=== PATIENT | female | born 1940 | race Caucasian/White ===

== ENCOUNTER 2022-02-10 12:19 | Emergency (ER) | payer MEDICARE, BC ==
[2022-02-10] MEDS ORDERED: Sodium Chloride 0.9% 10 ML Syringe FLUSH PRN (13:23)
[2022-02-10] MEDS ORDERED: HYDROmorphone 0.5 MG/0.5 ML Syringe IVPUSH ONE (13:23)
[2022-02-10] MEDS ORDERED: Ondansetron 4 MG/2 ML SDV IVPUSH ONE (15:19)
[2022-02-10] MEDS ORDERED: Promethazine 12.5 MG in Sodium Chloride 0.9% 50 ML IV ONE (15:44)
== END 2022-02-10 19:20 | disposition home or self-care (01) ==
LOC: JP.ED 12:19
DX: K80.20 Calculus of gallbladder without cholecystitis without obstruction (principal); K74.60 Unspecified cirrhosis of liver; K75.81 Nonalcoholic steatohepatitis (NASH); J90 Pleural effusion, not elsewhere classified; M54.6 Pain in thoracic spine; M54.50 Low back pain, unspecified; R11.2 Nausea with vomiting, unspecified; Z88.0 Allergy status to penicillin; Z88.1 Allergy status to other antibiotic agents; Z88.2 Allergy status to sulfonamides; Z79.01 Long term (current) use of anticoagulants
CPT/HCPCS: 36415; 71045; 71045-26; 72080; 72080-26; 74176; 80048; 80076; 85025; 85651; 96374; 96375; 99283; 99284-25; J1170; J2405; J2550; J3490

== ENCOUNTER 2022-09-26 05:11 | Inpatient (IN) | payer MEDICARE, BC ==
[2022-09-26 06:21] LABS: ESTIMATED GFR 16 mL/min (>60)
[2022-09-26 06:26] LABS: CORONAVIRUS COVID-19 NAA NEGATIVE (NEGATIVE)
[2022-09-26] MEDS ORDERED: Magnesium Hydroxide 400 MG/5 ML Susp 30 ML Cup PO PRN (09:43)
[2022-09-26] MEDS ORDERED: Acetaminophen 325 MG Tab PO PRN (09:43)
[2022-09-26] MEDS ORDERED: LORazepam 2 MG/ML SDV IVPUSH PRN (09:43)
[2022-09-26] MEDS ORDERED: Ondansetron 4 MG/2 ML SDV IV PRN (09:43)
[2022-09-26] MEDS ORDERED: Ondansetron 4 MG Tab.DIS PO PRN (09:43)
[2022-09-26] MEDS: Spironolactone 25 MG Tab PO SCH (10:31)
[2022-09-26] MEDS: Folic Acid 1 MG Tab PO SCH (10:31)
[2022-09-26] MEDS: Calcium Carbonate/Vitamin D3 1500 MG-400 Units Tab PO SCH ×2 (10:31→10:43)
[2022-09-26] MEDS: Metoprolol Tartrate 50 MG Tab PO SCH ×2 (10:31→20:10)
[2022-09-26] MEDS: amLODIPine 5 MG Tab PO SCH (10:31)
[2022-09-26] MEDS: Acetaminophen/HYDROcodone 325-5 MG Tab PO PRN ×2 (10:41→15:48)
[2022-09-26] MEDS: Albuterol 0.083% 2.5 MG/3 ML Neb Soln NEB PRN ×2 (10:42→15:48)
[2022-09-26] MEDS: Melatonin 3 MG Tab PO SCH (20:09)
[2022-09-26] MEDS: Lactobacillus Rhamnosus GG (Probiotic) Cap PO SCH (20:10)
[2022-09-26] MEDS ORDERED: atorvaSTATin 20 MG Tab PO SCH (21:00)
[2022-09-27 05:30] LABS: ESTIMATED GFR 16 mL/min (>60)
[2022-09-27] MEDS ORDERED: Levothyroxine 25 MCG Tab PO SCH (07:30)
[2022-09-27] MEDS: Folic Acid 1 MG Tab PO SCH (08:14)
[2022-09-27] MEDS: Levothyroxine 25 MCG Tab PO SCH (08:14)
[2022-09-27] MEDS: Lactobacillus Rhamnosus GG (Probiotic) Cap PO SCH ×2 (08:14→20:55)
[2022-09-27] MEDS: Calcium Carbonate/Vitamin D3 1500 MG-400 Units Tab PO SCH (08:14)
[2022-09-27] MEDS: Metoprolol Tartrate 50 MG Tab PO SCH ×2 (08:15→21:04)
[2022-09-27] MEDS: amLODIPine 5 MG Tab PO SCH (08:15)
[2022-09-27] MEDS: Spironolactone 25 MG Tab PO SCH (08:18)
[2022-09-27] MEDS: Acetaminophen/HYDROcodone 325-5 MG Tab PO PRN ×2 (15:00→19:42)
[2022-09-27] MEDS: Melatonin 3 MG Tab PO SCH (20:51)
[2022-09-28] MEDS: Acetaminophen/HYDROcodone 325-5 MG Tab PO PRN (03:34)
[2022-09-28 05:24] LABS: ESTIMATED GFR 17 mL/min (>60)
[2022-09-28] MEDS: Levothyroxine 25 MCG Tab PO SCH (07:10)
[2022-09-28] MEDS ORDERED: Bumetanide 1 MG/4 ML MDV IVPUSH ONE (07:35)
[2022-09-28] MEDS: Calcium Carbonate/Vitamin D3 1500 MG-400 Units Tab PO SCH (08:21)
[2022-09-28] MEDS: Folic Acid 1 MG Tab PO SCH (08:21)
[2022-09-28] MEDS: Lactobacillus Rhamnosus GG (Probiotic) Cap PO SCH (08:21)
[2022-09-28] MEDS: Metoprolol Tartrate 50 MG Tab PO SCH (08:21)
[2022-09-28] MEDS: amLODIPine 5 MG Tab PO SCH (08:31)
== END 2022-09-28 14:50 | disposition home or self-care (01) | DRG 291 ==
LOC: JP.ED 05:11 → JP.MS 07:54
PROVIDERS: ADMIT Hospitalist; ATTEND Hospitalist
PROC: 0W993ZZ Drainage of Right Pleural Cavity, Percutaneous Approach (ICD-10-PCS; principal; 2022-09-27)
DX: I11.0 Hypertensive heart disease with heart failure (principal); I50.43 Acute on chronic combined systolic (congestive) and diastolic (congestive) heart failure; J96.01 Acute respiratory failure with hypoxia; E87.1 Hypo-osmolality and hyponatremia; J91.8 Pleural effusion in other conditions classified elsewhere; I69.30 Unspecified sequelae of cerebral infarction; I48.91 Unspecified atrial fibrillation; K74.60 Unspecified cirrhosis of liver; K75.81 Nonalcoholic steatohepatitis (NASH); Z20.822 Contact with and (suspected) exposure to COVID-19; Z88.8 Allergy status to other drugs, medicaments and biological substances; Z79.890 Hormone replacement therapy; Z79.899 Other long term (current) drug therapy; E78.5 Hyperlipidemia, unspecified; E03.9 Hypothyroidism, unspecified; I69.320 Aphasia following cerebral infarction; Z88.0 Allergy status to penicillin; Z88.2 Allergy status to sulfonamides; Z79.01 Long term (current) use of anticoagulants
CPT/HCPCS: 0241U; 36415; 71045; 71046; 80053; 82042; 82945; 83615; 83880; 83986; 84157; 84443; 85025; 85027; 85610; 87015; 87070; 87102; 87116; 87205; 87206; 87220; 89050; 93005; 94640; 97116; 97162; 97165; 99285; A9270-GY; J3490

== ENCOUNTER 2022-10-01 15:03 | Inpatient (IN) | payer MEDICARE, BC ==
[2022-10-01 17:05] LABS: ESTIMATED GFR 15 mL/min (>60)
[2022-10-01] MEDS ORDERED: Albuterol 0.083% 2.5 MG/3 ML Neb Soln NEB PRN (17:36)
[2022-10-01] MEDS ORDERED: Magnesium Hydroxide 400 MG/5 ML Susp 30 ML Cup PO PRN (17:36)
[2022-10-01] MEDS ORDERED: Melatonin 3 MG Tab PO PRN (17:36)
[2022-10-01] MEDS ORDERED: Ondansetron 4 MG/2 ML SDV IV PRN (17:36)
[2022-10-01] MEDS: Metoprolol Tartrate 50 MG Tab PO SCH (21:28)
[2022-10-01] MEDS: Apixaban 2.5 MG Tab PO SCH (21:29)
[2022-10-01] MEDS: atorvaSTATin 20 MG Tab PO SCH (21:29)
[2022-10-02] MEDS: Levothyroxine 25 MCG Tab PO SCH (08:30)
[2022-10-02] MEDS: Apixaban 2.5 MG Tab PO SCH ×2 (08:30→21:16)
[2022-10-02] MEDS: Folic Acid 1 MG Tab PO SCH (08:31)
[2022-10-02] MEDS: Spironolactone 25 MG Tab PO SCH (08:31)
[2022-10-02] MEDS: amLODIPine 5 MG Tab PO SCH (08:37)
[2022-10-02] MEDS: Metoprolol Tartrate 50 MG Tab PO SCH ×2 (08:37→21:13)
[2022-10-02] MEDS: atorvaSTATin 20 MG Tab PO SCH (21:16)
[2022-10-03] MEDS: Acetaminophen 325 MG Tab PO PRN ×3 (00:10→21:16)
[2022-10-03] MEDS: Levothyroxine 25 MCG Tab PO SCH (07:38)
[2022-10-03] MEDS: Folic Acid 1 MG Tab PO SCH (08:59)
[2022-10-03] MEDS: Spironolactone 25 MG Tab PO SCH (08:59)
[2022-10-03] MEDS: Apixaban 2.5 MG Tab PO SCH ×2 (08:59→20:59)
[2022-10-03] MEDS: amLODIPine 5 MG Tab PO SCH (08:59)
[2022-10-03] MEDS: Metoprolol Tartrate 25 MG Tab PO SCH ×2 (09:02→21:00)
[2022-10-03] MEDS: atorvaSTATin 20 MG Tab PO SCH (20:59)
[2022-10-03] MEDS: Morphine 10 MG/0.5 ML Oral Syringe PO PRN (22:42)
[2022-10-04] MEDS: Levothyroxine 25 MCG Tab PO SCH (08:06)
[2022-10-04] MEDS: Morphine 10 MG/0.5 ML Oral Syringe PO PRN (08:06)
[2022-10-04] MEDS: Folic Acid 1 MG Tab PO SCH (08:06)
[2022-10-04] MEDS: Apixaban 2.5 MG Tab PO SCH ×2 (08:06→21:52)
[2022-10-04] MEDS: Spironolactone 25 MG Tab PO SCH (08:06)
[2022-10-04] MEDS: Metoprolol Tartrate 25 MG Tab PO SCH ×2 (08:06→21:53)
[2022-10-04] MEDS: amLODIPine 5 MG Tab PO SCH (08:13)
[2022-10-04] MEDS: LORazepam ORAL Concentrate 1MG/0.5ML U/D PO PRN (11:28)
[2022-10-04] MEDS: Prochlorperazine 10 MG Tab PO PRN (14:04)
[2022-10-04] MEDS: atorvaSTATin 20 MG Tab PO SCH (21:53)
[2022-10-05] MEDS: Morphine 10 MG/0.5 ML Oral Syringe PO PRN ×2 (07:40→19:31)
[2022-10-05] MEDS: amLODIPine 5 MG Tab PO SCH (11:44)
[2022-10-05] MEDS: Apixaban 2.5 MG Tab PO SCH ×2 (11:44→21:59)
[2022-10-05] MEDS: Levothyroxine 25 MCG Tab PO SCH (11:44)
[2022-10-05] MEDS: Spironolactone 25 MG Tab PO SCH (11:44)
[2022-10-05] MEDS: Folic Acid 1 MG Tab PO SCH (11:44)
[2022-10-05] MEDS: Metoprolol Tartrate 25 MG Tab PO SCH ×2 (11:44→21:59)
[2022-10-05] MEDS: Ondansetron 4 MG Tab.DIS PO PRN (20:33)
[2022-10-05] MEDS: LORazepam ORAL Concentrate 1MG/0.5ML U/D PO PRN (21:06)
[2022-10-05] MEDS: atorvaSTATin 20 MG Tab PO SCH (21:59)
[2022-10-06] MEDS: Morphine 10 MG/0.5 ML Oral Syringe PO PRN ×2 (05:26→17:46)
[2022-10-06] MEDS: Prochlorperazine 10 MG Tab PO PRN ×2 (05:26→17:36)
[2022-10-06] MEDS: Levothyroxine 25 MCG Tab PO SCH (11:23)
[2022-10-06] MEDS: Folic Acid 1 MG Tab PO SCH (11:24)
[2022-10-06] MEDS: amLODIPine 5 MG Tab PO SCH (11:24)
[2022-10-06] MEDS: Apixaban 2.5 MG Tab PO SCH ×2 (11:24→20:58)
[2022-10-06] MEDS: Metoprolol Tartrate 25 MG Tab PO SCH ×2 (11:24→20:58)
[2022-10-06] MEDS: Spironolactone 25 MG Tab PO SCH (11:24)
[2022-10-06] MEDS: atorvaSTATin 20 MG Tab PO SCH (20:58)
[2022-10-06] MEDS: LORazepam ORAL Concentrate 1MG/0.5ML U/D PO PRN (22:15)
[2022-10-07] MEDS: Levothyroxine 25 MCG Tab PO SCH (07:47)
[2022-10-07] MEDS: Spironolactone 25 MG Tab PO SCH (08:40)
[2022-10-07] MEDS: Metoprolol Tartrate 25 MG Tab PO SCH ×2 (08:41→21:55)
[2022-10-07] MEDS: Folic Acid 1 MG Tab PO SCH (08:41)
[2022-10-07] MEDS: Apixaban 2.5 MG Tab PO SCH ×2 (08:41→21:54)
[2022-10-07] MEDS: amLODIPine 5 MG Tab PO SCH (08:41)
[2022-10-07] MEDS: atorvaSTATin 20 MG Tab PO SCH (21:55)
[2022-10-07] MEDS: LORazepam ORAL Concentrate 1MG/0.5ML U/D PO PRN (21:58)
[2022-10-08] MEDS: Spironolactone 25 MG Tab PO SCH (08:18)
[2022-10-08] MEDS: Levothyroxine 25 MCG Tab PO SCH (08:18)
[2022-10-08] MEDS: Metoprolol Tartrate 25 MG Tab PO SCH ×2 (08:18→20:56)
[2022-10-08] MEDS: amLODIPine 5 MG Tab PO SCH (08:18)
[2022-10-08] MEDS: Apixaban 2.5 MG Tab PO SCH ×2 (08:18→20:56)
[2022-10-08] MEDS: Folic Acid 1 MG Tab PO SCH (08:18)
[2022-10-08] MEDS: Prochlorperazine 10 MG Tab PO PRN (20:24)
[2022-10-08] MEDS: Morphine 10 MG/0.5 ML Oral Syringe PO PRN (20:24)
[2022-10-08] MEDS: atorvaSTATin 20 MG Tab PO SCH (20:56)
[2022-10-09] MEDS: Spironolactone 25 MG Tab PO SCH (08:16)
[2022-10-09] MEDS: Metoprolol Tartrate 25 MG Tab PO SCH (08:16)
[2022-10-09] MEDS: Levothyroxine 25 MCG Tab PO SCH (08:16)
[2022-10-09] MEDS: Apixaban 2.5 MG Tab PO SCH (08:16)
[2022-10-09] MEDS: amLODIPine 5 MG Tab PO SCH (08:16)
[2022-10-09] MEDS: Folic Acid 1 MG Tab PO SCH (08:16)
[2022-10-09] MEDS: Ondansetron 4 MG Tab.DIS PO PRN (15:12)
[2022-10-09] MEDS: Morphine 10 MG/0.5 ML Oral Syringe PO PRN ×2 (15:12→22:37)
[2022-10-10] MEDS: Levothyroxine 25 MCG Tab PO SCH (08:45)
[2022-10-10] MEDS: Prochlorperazine 10 MG Tab PO PRN ×2 (09:04→20:00)
[2022-10-10] MEDS: Morphine 10 MG/0.5 ML Oral Syringe PO PRN ×4 (09:04→23:58)
[2022-10-10] MEDS: LORazepam ORAL Concentrate 1MG/0.5ML U/D PO PRN ×2 (22:07→23:08)
[2022-10-11] MEDS: LORazepam ORAL Concentrate 1MG/0.5ML U/D PO PRN (00:24)
[2022-10-11] MEDS: Morphine 10 MG/0.5 ML Oral Syringe PO PRN ×3 (01:22→04:16)
== END 2022-10-11 04:51 | disposition expired | DRG 186 ==
LOC: JP.ED 15:03 → JP.MS 17:01
PROVIDERS: ADMIT Internal Medicine; ATTEND Hospitalist
PROC: 0W993ZZ Drainage of Right Pleural Cavity, Percutaneous Approach (ICD-10-PCS; principal; 2022-10-01)
DX: J90 Pleural effusion, not elsewhere classified (principal); I50.43 Acute on chronic combined systolic (congestive) and diastolic (congestive) heart failure; J96.91 Respiratory failure, unspecified with hypoxia; N18.4 Chronic kidney disease, stage 4 (severe); R41.82 Altered mental status, unspecified; H54.7 Unspecified visual loss; R53.1 Weakness; Z66 Do not resuscitate; Z20.822 Contact with and (suspected) exposure to COVID-19; I48.91 Unspecified atrial fibrillation; K74.60 Unspecified cirrhosis of liver; K75.81 Nonalcoholic steatohepatitis (NASH); E03.9 Hypothyroidism, unspecified; I69.30 Unspecified sequelae of cerebral infarction; Z51.5 Encounter for palliative care; Z88.0 Allergy status to penicillin; Z88.8 Allergy status to other drugs, medicaments and biological substances; Z88.2 Allergy status to sulfonamides; Z79.890 Hormone replacement therapy; Z79.01 Long term (current) use of anticoagulants; Z79.899 Other long term (current) drug therapy
CPT/HCPCS: 36415; 70450; 70450-26; 71045; 71045-26; 80053; 81001; 82140; 85025; 88112; 88305; 99223; 99233; 99238; 99285; A9270-GY; J2405; Q0162; Q0164; U0002